=== PATIENT | male | born 1965 | race Caucasian/White ===

== ENCOUNTER 2018-10-03 17:51 | Emergency (ER) | payer OTHER ==
[~2018-10-03] VITALS: Ht 165.1 cm; Wt 94.0 kg
[2018-10-03 18:04] VITALS: BP 132/80
[2018-10-03] MEDS ORDERED: KETOROLAC 30 MG/ML VIAL IM ONE (18:50)
== END 2018-10-03 19:36 | disposition home or self-care (01) ==
LOC: MED 17:51
DX: M76.61 Achilles tendinitis, right leg (principal)
CPT/HCPCS: 73610; 96372; 99283; J1885; Q0092

== ENCOUNTER 2019-10-15 15:06 | Emergency (ER) | payer OTHER ==
[~2019-10-15] VITALS: Ht 167.6 cm; Wt 96.2 kg
--- NOTE | 2019-10-15 15:08 | NUR ---
PT AMBULATED TO BED 7, STEADY GAIT.
[2019-10-15 15:14] VITALS: BP 124/92
--- NOTE | 2019-10-15 15:18 | NUR ---
54 Y/M PRESENTS TO ED CO R ANKLE PAIN AND SWELLING SINCE TUESDAY, DENIES INJURY. PT REPORTS /10 THROBBING PAIN. EDEMA NOTED TO R ANKLE THAT RADIATES TO R OREILLY, PEDAL PULSE 2+, CAP REFILL < 2 SECONDS. PMH- ACHILLES NKDA RX- IBUPROFEN
--- NOTE | 2019-10-15 16:04 | NUR ---
WESTLEY SOLIS AT BEDSIDE
[2019-10-15] MEDS ORDERED: KETOROLAC 60 MG/2 ML VIAL IM ONE (16:10)
--- NOTE | 2019-10-15 16:46 | NUR ---
APPLIED STIR UP SPLINT TO RIGHT ANKLE WITHOUT ANY ISSUES. PT DEMONSTRATED PROPER USE OF CRUTCHES WITHOUT ANY ISSUES
[2019-10-15 17:04] VITALS: BP 124/92
== END 2019-10-15 17:04 | disposition home or self-care (01) ==
LOC: MED 15:06
DX: S86.012A Strain of left Achilles tendon, initial encounter (principal); X58.XXXA Exposure to other specified factors, initial encounter; Y93.89 Activity, other specified; Y92.89 Other specified places as the place of occurrence of the external cause; Y99.8 Other external cause status
CPT/HCPCS: 29515; 73610; 96372; 99283; J1885; Q0092

== ENCOUNTER 2021-01-14 14:47 | Emergency (ER) | payer OTHER ==
[~2021-01-14] VITALS: Ht 170.2 cm; Wt 87.5 kg
[2021-01-14 15:05] VITALS: BP 157/90
--- NOTE | 2021-01-14 15:05 | NUR ---
PATIENT AMBULATED TO BED 2 WITH STEADY GAIT
--- NOTE | 2021-01-14 15:10 | NUR ---
55/M BIB SELF WITH C/O RIGHT ARM AND RIGHT SIDED RIB PAIN S/P SLIPPING AND FALLING AT HOME 3 DAYS AGO. PATIENT DENIES HEAD INJURY OR LOC, STATES PAIN WORSENS WHEN TAKING A DEEP BREATH. REPORTS TAKING IBUPROFEN WITH MILD RELIEF, ROM LIMITED DUE TO PAIN. DENIES NUMBNESS, TINGLING, CP OR SOB.
--- NOTE | 2021-01-14 15:11 | NUR ---
PA LOWE AT BEDSIDE EVALUATING PT
[2021-01-14] MEDS ORDERED: KETOROLAC 30 MG/ML VIAL IM ONE (15:15)
--- NOTE | 2021-01-14 16:00 | NUR ---
PATIENT APPEARS TO BE RESTING IN BED, AWAITING LAB RESULTS. ALL NEEDS MET AT THIS TIME.
[2021-01-14] MEDS ORDERED: ACET-8386 PO (17:14)
[2021-01-14] MEDS ORDERED: IBUP-2213 PO (17:14)
[2021-01-14 17:26] VITALS: BP 157/90
--- NOTE | 2021-01-14 17:26 | NUR ---
Patient discharged with v/s stable. Written and verbal after care instructions ABOUT RIB FRACTURE given and explained. Patient alert, oriented and verbalized understanding of instructions. Ambulatory with steady gait. All questions addressed prior to discharge. ID band removed. Patient advised to follow up with PMD. Rx of IBUPROFEN 600MG AND NORCO 5-325 given. Patient educated on indication of medication including possible reaction and side effects. PATIENT EDUCATED ON USE OF NARCOTICS, ADVISED TO AVOID DRINKING OR DRIVING. Opportunity to ask questions provided and answered.
== END 2021-01-14 17:26 | disposition home or self-care (01) ==
LOC: MED 14:47
DX: S22.41XA Multiple fractures of ribs, right side, initial encounter for closed fracture (principal); R03.0 Elevated blood-pressure reading, without diagnosis of hypertension; Z79.899 Other long term (current) drug therapy; W01.0XXA Fall on same level from slipping, tripping and stumbling without subsequent striking against object, initial encounter; Y93.89 Activity, other specified; Y92.89 Other specified places as the place of occurrence of the external cause; Y99.8 Other external cause status
CPT/HCPCS: 71101; 96372; 99283; J1885

== ENCOUNTER 2022-01-20 16:25 | Emergency (ER) | payer OTHER ==
[~2022-01-20] VITALS: Ht 167.6 cm; Wt 89.4 kg
[~2022-01-20 16:25] MED LIST: ACET-8386 PO; IBUP-2213 PO
[2022-01-20 16:47] VITALS: BP 134/80
--- NOTE | 2022-01-20 16:52 | NUR ---
COVID, FLU SWABS DONE.
[2022-01-20] MEDS ORDERED: PROM118S5 PO (18:57)
[2022-01-20] MEDS ORDERED: TAM75 PO (18:57)
[2022-01-20 19:19] VITALS: BP 128/80
--- NOTE | 2022-01-20 19:19 | NUR ---
Patient discharged with v/s stable. Written and verbal after care instructions given and explained. Patient alert, oriented and verbalized understanding of instructions. Ambulatory with steady gait. All questions addressed prior to discharge. ID band removed. Patient advised to follow up with PMD. Rx of Tamiflu and Promethazine-DM Syrup given. Patient educated on indication of medication including possible reaction and side effects. Opportunity to ask questions provided and answered.
== END 2022-01-20 19:19 | disposition home or self-care (01) ==
LOC: MED 16:25
DX: J10.1 Influenza due to other identified influenza virus with other respiratory manifestations (principal); Z20.822 Contact with and (suspected) exposure to COVID-19
CPT/HCPCS: 71045; 99284